=== PATIENT | female | born 1965 | race Caucasian/White ===

== ENCOUNTER → 2019-10-30 | Outpatient (CLI) | payer OTHER ==
[2019-10-30 09:35] LABS: BASOPHILS # (AUTO) 0.03 x10^3/uL (0-0.1); BASOPHILS % (AUTO) 1 % (0-1); EOSINOPHILS # (AUTO) 0.12 x10^3/uL (0-0.4); EOSINOPHILS % (AUTO) 4 % (1-7); LYMPHOCYTES # (AUTO) 1.55 x10^3/uL (1-3.4); LYMPHOCYTES % (AUTO) 48 % (22-44); MD NO; MEAN CORPUSCULAR HEMOGLOBIN 33.2 pg (27.0-34.8); MEAN CORPUSCULAR HGB CONC 33.3 g/dL (32.4-35.8); MEAN CORPUSCULAR VOLUME 99.7 fL (80-100); MEAN PLATELET VOLUME 7.4 fL (7.4-10.4); MONOCYTES # (AUTO) 0.23 x10^3/uL (0.2-0.8); MONOCYTES % (AUTO) 7 % (2-9); NEUTROPHILS # (AUTO) 1.31 x10^3/uL (1.8-6.8); NEUTROPHILS % (AUTO) 40 % (42-75); PLATELET COUNT 205 x10^3/uL (130-400); RED CELL DISTRIBUTION WIDTH 12.8 % (9.6-15.2)
[2019-10-30 09:36] LABS: ALANINE AMINOTRANSFERASE 35 U/L (12-78); ALBUMIN 3.9 g/dL (3.4-5.0); ANION GAP 4 mmol/L (5-15); CALCIUM 9.3 mg/dL (8.5-10.1); CHLORIDE 108 mmol/L (98-107); CHOLESTEROL, TOTAL 228 mg/dL (140-239); CREATININE 0.85 mg/dL (0.55-1.02); TRIGLYCERIDES 46 mg/dL (50-200); VLDL CHOLESTEROL 9 mg/dL (0-25)
[2019-10-30 09:46] LABS: ALKALINE PHOSPHATASE 53 U/L (45-117); BILIRUBIN,TOTAL 0.7 mg/dL (0.2-1.0); CHOL/HDL RATIO 2.7; HDL CHOL % 37 % (28-40); HDL CHOLESTEROL (DIRECT) 85 mg/dL (40-60); LDL CHOLESTEROL,CALCULATED 134 mg/dL (54-169); LDL/HDL RATIO 1.6 (0.5-3.0)
== END | disposition home or self-care (01) ==
LOC: LAB 09:06
PROVIDERS: ATTEND Internal Medicine Hematology & Oncology
DX: Z01.419 Encounter for gynecological examination (general) (routine) without abnormal findings (principal)
CPT/HCPCS: 36415; 80053; 80061; 83036; 84443; 85025

== ENCOUNTER 2020-06-09 08:53 | Outpatient (CLI) | payer OTHER ==
[2020-06-09] MEDS ORDERED: CHOL10003 PO (09:16)
[2020-06-09] MEDS ORDERED: [UNRECOGNIZED DRUG - OTHER] PO (09:16)
[2020-06-09] MEDS ORDERED: MULT-717 PO (09:16)
[2020-06-09] MEDS ORDERED: CETI10CA PO (09:16)
[2020-06-09] MEDS ORDERED: ASCO100018 PO (09:16)
[2020-06-09] MEDS ORDERED: ashwagandha PO (09:17)
[2020-06-09] MEDS ORDERED: TURM500C4 PO (09:17)
== END 2020-06-09 23:59 | disposition home or self-care (01) ==
LOC: STAR 08:53
PROVIDERS: ATTEND Orthopaedic Surgery
DX: Z02.9 Encounter for administrative examinations, unspecified (principal)

== ENCOUNTER 2020-06-15 13:50 | Day surgery (SDC) | payer OTHER ==
[~2020-06-15] VITALS: Ht 170.2 cm; Wt 59.7 kg
[~2020-06-15 13:50] MED LIST: ASCO100018 PO; CETI10CA PO; CHOL10003 PO; MULT-717 PO; TURM500C4 PO; [UNRECOGNIZED DRUG - OTHER] PO; ashwagandha PO
[2020-06-15 14:30] VITALS: BP 115/74
[2020-06-15] MEDS ORDERED: LACTATED RINGERS 1,000 ML IV SCH (14:30)
[2020-06-15] MEDS ORDERED: CHLORHEXIDINE 15 ML UDC PO ONE (14:30)
[2020-06-15] MEDS ORDERED: CHLORHEXIDINE 15 ML UDC ONE (14:37)
[2020-06-15] MEDS ORDERED: FENTANYL PF 100 MCG/2ML ONE ×2 (15:32→17:05)
[2020-06-15] MEDS ORDERED: MIDAZOLAM 1 MG/ML, 2ML ONE (15:32)
[2020-06-15] MEDS ORDERED: BUPIVACAINE/PF 0.25% ONE (15:42)
[2020-06-15] MEDS ORDERED: EPINEPHRINE TOPICAL SOLN 1 MG/ML, 30ML ONE (15:42)
[2020-06-15] MEDS ORDERED: LIDOCAINE/PF 1%, 30ML ONE (15:42)
[2020-06-15] MEDS ORDERED: morphine SULFATE 10 MG/ML, 1ML ONE (15:55)
[2020-06-15] MEDS ORDERED: DEXAMETHASONE 4 MG/ML, 1ML ONE ×2 (16:04→16:07)
[2020-06-15] MEDS ORDERED: PROPOFOL 10 MG/ML, 20ML ONE (16:04)
[2020-06-15] MEDS ORDERED: ROCURONIUM 10MG/ML,5ML ONE (16:04)
[2020-06-15] MEDS ORDERED: ONDANSETRON 2MG/ML, 2ML ONE (16:04)
[2020-06-15] MEDS ORDERED: CEFAZOLIN 1,000 MG ONE ×2 (16:07)
[2020-06-15] MEDS ORDERED: DIAZEPAM 5 MG/ML, 2ML IVPush PRN (17:00)
[2020-06-15] MEDS ORDERED: ACETAMINOPHEN 325 MG TABLET PO PRN (17:00)
[2020-06-15] MEDS ORDERED: ALBUTEROL SULFATE 2.5 MG/3 ML NPPB PRN (17:00)
[2020-06-15] MEDS ORDERED: DIPHENHYDRAMINE 50 MG/ML, 1ML IVPush PRN ×2 (17:00)
[2020-06-15] MEDS: FENTANYL PF 100 MCG/2ML IV PRN ×2 (17:00→17:15)
[2020-06-15] MEDS ORDERED: hydrALAzine 20 MG/ML, 1ML IV PRN (17:00)
[2020-06-15] MEDS ORDERED: MIDAZOLAM 1 MG/ML, 2ML IV PRN (17:00)
[2020-06-15] MEDS ORDERED: LABETALOL 5MG/ML, 20ML IV PRN (17:00)
[2020-06-15] MEDS ORDERED: ONDANSETRON 2MG/ML, 2ML IVPush PRN (17:00)
[2020-06-15] MEDS ORDERED: OXYcodone 5 MG/5 ML ORAL.SOL UDC PO PRN (17:00)
[2020-06-15] MEDS ORDERED: MEPERIDINE/PF 25MG/0.5ML IVPush PRN (17:00)
[2020-06-15] MEDS ORDERED: HYDROmorphone 1 MG/ML, 1ML INJ IVPush PRN (17:00)
[2020-06-15] MEDS ORDERED: PROMETHAZINE 12.5 MG SUPP PR PRN (17:00)
[2020-06-15] MEDS ORDERED: EPHEDRINE 50 MG/ML, 1ML IVPush PRN (17:00)
[2020-06-15] MEDS ORDERED: PROMETHAZINE 25 MG/ML, 1ML IVPush PRN (17:00)
[2020-06-15] MEDS ORDERED: ACETAMINOPHEN 650 MG/20.3 ML UDC ONE (17:06)
[2020-06-15] MEDS ORDERED: OXYcodone 5 MG/5 ML ORAL.SOL UDC ONE (17:06)
== END 2020-06-15 19:00 | disposition home or self-care (01) ==
LOC: OR 13:50
PROVIDERS: ATTEND Orthopaedic Surgery
DX: S83.231A Complex tear of medial meniscus, current injury, right knee, initial encounter (principal); M22.41 Chondromalacia patellae, right knee; M67.261 Synovial hypertrophy, not elsewhere classified, right lower leg; Z20.822 Contact with and (suspected) exposure to COVID-19; Z87.891 Personal history of nicotine dependence; Z88.0 Allergy status to penicillin; Z82.61 Family history of arthritis; X58.XXXA Exposure to other specified factors, initial encounter; Y93.89 Activity, other specified; Y92.89 Other specified places as the place of occurrence of the external cause; Y99.8 Other external cause status
CPT/HCPCS: 29876; 29881; 87635; J0690; J1100; J2250; J2270; J2405; J2704; J3010; J7120